=== PATIENT | male | born 1980 | race Caucasian/White ===

== ENCOUNTER 2017-08-23 17:46 | Emergency (ER) | payer MEDICAID ==
[2017-08-23] MEDS ORDERED: HALOPERIDOL LACT 5 MG/ML INJ ONE (17:52)
[2017-08-23] MEDS ORDERED: LORazepam 2 MG/ML INJ ONE (17:53)
--- NOTE | 2017-08-23 17:55 | EDPHY ---
H & P Time Seen by Provider: 08/23/17 17:52 Constitutional: Initial Vital Signs Temperature (C) 37 C 08/23/17 18:03 Heart Rate 123 H 08/23/17 18:03 Respiratory Rate 18 08/23/17 18:03 Blood Pressure 136/98 H 08/23/17 18:03 O2 Sat (%) 99 08/23/17 18:03 O2 Delivery Mode Room Air Allergies/Adverse Reactions: No Known Allergies Allergy (Unverified 08/23/17 18:11) Home Medications: Medication Instructions Recorded Benztropine/Cogentin 08/23/17 Divalproex/Depakote 08/23/17 Quetiapine/Seroquel 08/23/17 busPIRone 08/23/17 Medical Decision Making ED Course/Re-evaluation: CHIEF COMPLAINT: Psychiatric evaluation HISTORY OF PRESENT ILLNESS: This gentleman was just released from alf for time served. When they were releasing him from alf he did not want to leave alf. He has been quite belligerent and aggressive. It required several smearer's officers to control him since he would not comply voluntarily. He is strapped to a restraint chair currently. The smearer's officers state that he will need to be sedated before removed from the restraint chair because of his combativeness. Additionally, this patient does admit that he has not been taking his psychiatric medicines probably since May. Any medicines that they gave him in alf he has been treating for other alf items like food. Also , he endorses the fact that he has been admitted to [facility]. He will not state his actual diagnosis. REVIEW OF SYSTEMS: A 10 point review of systems was performed and is negative with the exception of the elements mentioned in the history of present illness. PHYSICAL EXAM: General Appearance: Alert, well hydrated, appropriate, and non-toxic appearing. Head: Atraumatic without scalp tenderness or obvious injury Eyes: Pupils equal, round, reactive to light and accommodation, EOMI, no trauma , no injection. Ears: Clear bilaterally, no perforation, normal landmarks Nose: Atraumatic, no rhinorrhea, clear. Throat: There is no erythema or exudates, no lesions, normal tonsils, mucus membranes moist. Neck: Supple, 2+ carotid upstroke, nontender, no lymphadenopathy. Respiratory: No retractions, no distress, no wheezes, and no accessory muscle use. Lungs are clear to auscultation bilaterally. Cardiovascular: Regular rate and rhythm, no murmurs, rubs, or gallops. Bilateral carotid, radial, dorsalis pedis, and posterior tibial pulses intact. Good capillary refill all extremities. Gastrointestinal: Abdomen is soft, nontender, non-distended, no masses, no rebound, no guarding, no peritoneal signs. Musculoskeletal: Normal active ROM of all extremities, atraumatic. Neurological: Alert, appropriate, and interactive. The patient has normal DTRs and non-focal cranial nerves, motor, sensory, and cerebellar exam. Skin: No rashes, good turgor, no nodules on palpation. Past medical history: Psychiatric history Past surgical history: Denies Family history: Patient will not answer Social history: Just out of alf, single, unemployed, unclear about any substance use or abuse DIFFERENTIAL DIAGNOSIS: The differential diagnosis for the patient's psychoses included but was not limited to maria dolores with psychoses, situational psychoses, medication side effect, drugs, and alcohol abuse. MEDICAL DECISION MAKING: Patient is in no acute distress and is hemodynamically stable. Before removing this patient from the restraint chair we need to give him Haldol, Ativan, Benadryl. He has been off his psychiatric medicines for some time now and I am hoping that the addition of an antipsychotic with benzodiazepine will help to come him so that he can be safely evaluated. We are awaiting psychiatric team's evaluation. Patient has known history of psychiatric disorders and is here for evaluation. (Hernán Montana) Patient was stable during my care. Patient is signed out to Dr. Christensen at change of shift. (Deepti Pitts) I took over care of this patient at 7:00 a.m.. This patient is on an M1 hold for psychosis. The patient had to be sedated in the emergency department secondary to combative behavior. Plan at this time is for the patient to be evaluated by Behavioral Health sometime this morning. 11:00 a.m., the patient was seen and evaluated by Behavioral Health. They want to admit this patient. Destination pending. 3:00 p.m., patient still awaiting admission. Care turned over to Dr. Hernán Montana at this time. (Edwina Ellison) Leora 30th 12:25 a.m.- The mental health furniture fabricator came to see the patient and unfortunately he was too sedate to complete evaluation. We will plan for reassessment later in the morning. 7:00 a.m.-the case has been signed out to the oncoming provider Dr. Ellison pending psychiatric evaluation. August 25 7:00 a.m.- The patient continues to await for placement. I gave him a dose of Ativan overnight. The case will be signed out to the oncoming provider Dr. Escudero. ( Emma Christensen) August 25, 8:15 a.m.. I assumed care of this patient from Dr. Christensen at 7:00 a.m.. He has been cooperative this morning. We are awaiting a call from [facility] concerning possible placement. He states that he is not on any psychiatric medication and does not need to take psychiatric medications. I met with the patient briefly examined him. He has no new complaints. Lungs are clear and heart is regular. Abdomen is soft and nontender. At 3:00 p.m. his care is transferred to Dr. Mccarthy. We are still awaiting placement. (Anisa Escudero) Other Provider: I assumed care of the patient 3:00 p.m. pending psychiatric evaluation and disposition. Updated 10:30 p.m.: The patient has been accepted by Dr. Hogan at the [facility] psychiatric facility. I have filled out the [facility] transfer form. (Norberto Mccarthy) - Data Points Laboratory Results: Laboratory Results 08/23/17 19:20 08/23/17 19:20 Medications Given: Discontinued Medications Diphenhydramine HCl (Benadryl Injection) 50 mg IM EDNOW ONE Stop: 08/23/17 18:13 Last Admin: 08/23/17 18:14 Dose: 50 mg Haloperidol Lactate (Haldol Injection) 10 mg IVP EDNOW ONE Stop: 08/23/17 18:13 Last Admin: 08/23/17 18:14 Dose: 10 mg Lorazepam (Ativan Injection) 2 mg IM ONCE ONE Stop: 08/23/17 18:14 Last Admin: 08/23/17 18:15 Dose: 2 mg Lorazepam (Ativan) 1 mg PO EDNOW ONE Stop: 08/24/17 23:38 Last Admin: 08/24/17 23:41 Dose: 1 mg Departure - Departure Disposition: Other Psych, Not Park Clinical Impression: Acute exacerbation of psychosis Condition: Fair Referrals: Patient,NotPresent [Primary Care Provider] - As per Instructions
[2017-08-23] MEDS ORDERED: HALOPERIDOL LACT 5 MG/ML INJ IVP ONE (18:12)
[2017-08-23] MEDS ORDERED: LORazepam 2 MG/ML INJ IM ONE (18:13)
[2017-08-23 19:29] LABS: PLATELET COUNT 191 10^3/uL (150-400)
[2017-08-24] MEDS ORDERED: LORazepam 1 MG TAB PO ONE (23:37)
[2017-08-26 00:48] VITALS: BP 128/77
== END 2017-08-26 00:51 ==
LOC: EEVIPCON 17:46
DX: F23 Brief psychotic disorder (principal)
CPT/HCPCS: 80305; 96374; G0480; J1200; J1630; J2060